=== PATIENT | male | born 1975 | race Caucasian/White ===

== ENCOUNTER 2024-04-13 11:27 | Observation (INO) ==
[2024-04-13 11:54] LABS: Basophils # (auto) 0.03 K/uL (0.00-0.20); Basophils % (auto) 0.2 %; Eosinophils # (auto) 0.02 K/uL (0.00-0.50); Eosinophils % (auto) 0.1 %; Hematocrit (blood only) 50.5 % (42.0-52.0); Immature Granulocytes # (auto) 0.06 K/uL (0.01-0.20); Immature Granulocytes % (auto) 0.4 %; Lymphocytes # (auto) 1.99 K/uL (1.20-3.40); Lymphocytes % (auto) 14.6 %; Mean Corpuscular Hemoglobin 30.4 pg (25.0-34.0); Mean Corpuscular Hgb Conc 35.6 g/dL (32.0-36.0); Mean Corpuscular Volume 85.3 fL (80.0-100.0); Mean Platelet Volume 11.5 fL (9.4-12.4); Monocytes # (auto) 1.23 K/uL (0.11-0.59); Monocytes % (auto) 9.1 %; Neutrophils # (auto) 10.26 K/uL (1.40-6.50); Neutrophils % (auto) 75.6 %; Platelet Count 265 K/uL (130-400); RDW Standard Deviation 37.2 fL (36.4-46.3); Red Blood Count 5.92 M/uL (4.70-6.10); White Blood Count 13.59 K/ul (4.8-10.8)
[2024-04-13 12:19] LABS: Partial Thromboplastin Time 27 Seconds (21-31); Prothrombin Time 11.2 Seconds (9.0-12.0)
[2024-04-13 12:24] LABS: Albumin Globulin Ratio 1.5 (0.9-2); Albumin Level 4.9 gm/dl (3.4-5.0); BUN Creatinine Ratio 9.3 (10-20); Bilirubin,Total 0.8 mg/dl (0.2-1.0); Calcium 10.2 mg/dl (8.6-10.3); Creatinine Clr Calc Pharmacy 95.1 ml/min; Est GFR (African American) 105.8 ml/min; Est GFR (Non-African American) 91.3 ml/min; Globulin 3.3 gm/dl (2.5-4.0); Total Protein 8.2 gm/dl (6.0-8.3)
--- NOTE | 2024-04-13 12:24 | Emergency Department Note ---
ED Provider Note History of Present Illness Chief Complaint: Abdominal Pain Stated Complaint: RIGHT ABD PAIN, NAUSEA, VOMITING Time Seen by Provider: 04/13/24 11:54 49-year-old male LEANNE Mckinley inmate who presents the emergency department with corrections officers for evaluation of epigastric pain radiating into the region between the shoulder blades. The patient reports that the pain started around 5:30 AM yesterday morning. The patient reports that throughout the day, the pain was intermittent, but rather severe discomfort with nausea, vomiting and sweatiness. The patient reports that the symptoms did somewhat improve last evening, however the patient has had vomiting every 20 minutes overnight. He reports that the vomit looks like bile. He denies coffee-ground emesis. Patient reports that the pain is also worsened when he takes a deep breath. He denies any chest pain, shortness of breath, neck pain or headaches. The patient denies any excess of caffeine or ibuprofen use. Patient reports that he has not had any alcohol since being incarcerated for the past 18 months. He denies history of heart disease, GERD or other known GI issues. Patient does not know his father, and reports family history is of heart disease and stroke. Patient has not had a bowel movement in the last few days. Patient denies any urinary symptoms. The patient currently rates his discomfort a 6 out of 10. Patient denies any obvious alleviating or aggravating factors for his pain. Home Medications Medication Instructions Recorded Confirmed Type No Known Home Medications 04/13/24 04/13/24 History Allergies Allergy/AdvReac Type Severity Reaction Status Date / Time No Known Allergies Allergy Unverified 04/13/24 14:44 Past Med/Surg History Problem List Acute cholecystitis (Acute) Medical History Cocaine use disorder Opioid use disorder Sleep disorder Surgical History No significant past surgical history Social History Smoking Status: Never smoker Preferred Language: Amharic Current Living Situation: Other Current Living Situation Comment: Incarcerated Feels Safe at Home: Yes Physical Exam Vital Signs Vital Signs - 24 hr 04/13/24 11:30 04/13/24 11:55 04/13/24 11:56 Temperature 36.7 C Temperature Source Temporal Artery Scan Pulse Rate 95 H Pulse Rate [Apical] Pulse Rate [Finger] 90 Pulse Rhythm [Apical] Respiratory Rate 18 20 Respiratory Effort / Characteristics Non-Labored Spontaneous Non-Labored Spontaneous Respiratory Depth Normal Normal Respiratory Pattern Blood Pressure 149/103 H Blood Pressure [Right Arm] 156/99 H Blood Pressure Mean 118 Blood Pressure Mean [Right Arm] 118 Blood Pressure Position Sitting Blood Pressure Position [Right Arm] Pulse Oximetry 96 98 99 Oxygen Delivery Method Room Air Room Air Room Air Oxygen Flow Rate Sepsis Recent Fever Within 48 Hours No Sepsis New/Unexplained Change in Mental Status No Sepsis Action Taken by Nursing No Action Required 04/13/24 12:24 04/13/24 14:30 04/13/24 14:49 Temperature Temperature Source Pulse Rate Pulse Rate [Apical] Pulse Rate [Finger] 92 H Pulse Rhythm [Apical] Respiratory Rate 17 Respiratory Effort / Characteristics Non-Labored Spontaneous Respiratory Depth Normal Respiratory Pattern Regular Blood Pressure Blood Pressure [Right Arm] 137/97 Blood Pressure Mean Blood Pressure Mean [Right Arm] 110 Blood Pressure Position Blood Pressure Position [Right Arm] Pulse Oximetry 94 Oxygen Delivery Method Room Air Room Air Room Air Oxygen Flow Rate Sepsis Recent Fever Within 48 Hours Sepsis New/Unexplained Change in Mental Status Sepsis Action Taken by Nursing 04/13/24 15:14 04/13/24 17:24 04/13/24 17:30 Temperature 37.2 C 36.5 C Temperature Source Oral Temporal Artery Scan Temporal Artery Scan Pulse Rate Pulse Rate [Apical] 98 H 92 H Pulse Rate [Finger] 95 H Pulse Rhythm [Apical] Regular Regular Respiratory Rate 20 20 10 L Respiratory Effort / Characteristics Non-Labored Spontaneous Non-Labored Spontaneous Non-Labored Spontaneous Respiratory Depth Normal Normal Normal Respiratory Pattern Regular Regular Regular Blood Pressure Blood Pressure [Right Arm] 144/93 H 154/92 H 148/92 H Blood Pressure Mean Blood Pressure Mean [Right Arm] 110 112 110 Blood Pressure Position Blood Pressure Position [Right Arm] Semi-fowlers Semi-fowlers Semi-fowlers Pulse Oximetry 96 94 93 Oxygen Delivery Method Room Air Nasal Cannula Nasal Cannula Oxygen Flow Rate 3 3 Sepsis Recent Fever Within 48 Hours Sepsis New/Unexplained Change in Mental Status Sepsis Action Taken by Nursing 04/13/24 17:40 04/13/24 17:50 Temperature Temperature Source Temporal Artery Scan Temporal Artery Scan Pulse Rate Pulse Rate [Apical] 88 86 Pulse Rate [Finger] Pulse Rhythm [Apical] Regular Regular Respiratory Rate 14 12 Respiratory Effort / Characteristics Non-Labored Spontaneous Non-Labored Spontaneous Respiratory Depth Normal Normal Respiratory Pattern Regular Regular Blood Pressure Blood Pressure [Right Arm] 132/91 148/90 H Blood Pressure Mean Blood Pressure Mean [Right Arm] 104 109 Blood Pressure Position Blood Pressure Position [Right Arm] Semi-fowlers Semi-fowlers Pulse Oximetry 96 96 Oxygen Delivery Method Nasal Cannula Nasal Cannula Oxygen Flow Rate 2 2 Sepsis Recent Fever Within 48 Hours Sepsis New/Unexplained Change in Mental Status Sepsis Action Taken by Nursing CONSTITUTIONAL: Healthy and well nourished. Alert and oriented X 3. GCS 15. Patient appears in moderate discomfort. HEENT: Normocephalic, atraumatic. Pupils equal, round and reactive. Mucous membranes are dry. No scleral icterus or conjunctival injection. NECK: Full active range of motion without discomfort. LYMPHATICS: No cervical chain adenopathy. RESPIRATORY: Clear to auscultation bilaterally with no wheezing, crackles, rhonchi or stridor. CARDIOVASCULAR: Regular rate and rhythm with no murmurs, rubs or gallops. GASTROINTESTINAL: Bowel sounds present in all quadrants. Patient has right upper quadrant and epigastric tenderness to palpation without guarding, rigidity or rebound. Negative CVA tenderness. Negative McBurney's point tenderness. MUSCULOSKELETAL: Full range of motion of all joints without discomfort. INTEGUMENTARY: No rash or other significant dermatologic conditions noted. HEMATOLOGIC: No ecchymosis or petechiae. PSYCHIATRIC: Positive affect. NEUROLOGIC: No focal neurologic deficits noted. Course Course Patient history and physical exam were performed. Nurses notes were reviewed. Vital signs were reviewed, showing an elevated blood pressure in triage. On my examination, the blood pressure was much better at 145/92. Review of medical records shows no prior visits to our facility. IV access was established, and labs were drawn. The patient was hydrated with a liter of normal saline, and administered IV morphine and Zofran for pain and nausea control. An ECG was performed showing a sinus bradycardia, without any other conduction abnormalities, ischemia or infarct. The patient was placed on media monitor while in the emergency department. A portable chest x-ray was normal. Further review of labs shows a mild leukocytosis with mild neutrophilic shift, and no bandemia. Coagulation studies, CMP and lipase were grossly normal. Troponin was also normal. CT with IV contrast of the chest, abdomen and pelvis is concerning for an acute cholecystitis with multiple gallstones and pericholecystic fluid. Upon reevaluation, the patient reported initial pain relief with IV medications, however the pain was starting to get back again. The patient was administered IV Dilaudid and Zosyn 4.5 mg IV infusion. The case was discussed with the [facility] surgery service (Carolyne Flowers PA-C), who came to the emergency department for further evaluation, and has indicated that the patient will undergo laparoscopic cholecystectomy sometime today. The patient was provided additional IV medications and hydration until he went to the OR. Please see surgery's dictations for further treatment and final disposition. Administered Medications Discontinued Medications Bupivacaine HCl/Epinephrine Bitart (Bupivacaine/Epinephrine 0.5% Mpf 1:200,000 30 Ml Vial) Confirm Administered Dose 30 ml .ROUTE .STK-MED ONE Stop: 04/13/24 15:29 Last Admin: 04/13/24 16:56 Dose: 30 ml Documented By: [id number] Piperacillin Sod/Tazobactam Sod (Zosyn) 4.5 gm in 100 mls @ 200 mls/hr IV NOW ONE Stop: 04/13/24 14:15 Last Admin: 04/13/24 14:44 Dose: 200 mls/hr Documented By: KITA Lactated Ringer's (Lr) 1,000 mls @ 15 mls/hr IV .Q24H JUAN DANIEL Stop: 05/13/24 15:29 Last Infusion: 04/13/24 15:30 Dose: Infused Documented By: Admin: 04/13/24 15:21 Dose: 15 mls/hr Documented By: MG Ioversol (Optiray 320 100ml) 94 ml IV ONCE ONE Stop: 04/13/24 12:58 Last Admin: 04/13/24 12:57 Dose: 94 ml Documented By: JENNYFER Morphine Sulfate (Morphine Sulfate 4 Mg/Ml 1 Ml Carp\Vial) 4 mg IV NOW STA Stop: 04/13/24 12:13 Last Admin: 04/13/24 12:39 Dose: 4 mg Documented By: ROOPA Ondansetron HCl (Ondansetron Inj 2 Mg/Ml 2 Ml Vial) 4 mg IV NOW STA Stop: 04/13/24 12:13 Last Admin: 04/13/24 12:39 Dose: 4 mg Documented By: ROOPA Medical Decision Making Medical Records Attestation: I reviewed the patient's medical records. Home Medications was personally reviewed by me Laboratory Data Attestation: I reviewed the patient's lab results. 04/13/24 11:35 04/13/24 11:35 Lab Results 04/13/24 04/13/24 Range/Units 11:35 11:35 WBC 13.59 H (4.8-10.8) K/ul RBC 5.92 (4.70-6.10) M/uL Hgb 18.0 (14.0-18.0) g/dl Hct 50.5 (42.0-52.0) % MCV 85.3 (80.0-100.0) fL MCH 30.4 (25.0-34.0) pg MCHC 35.6 (32.0-36.0) g/dL RDW Std Deviation 37.2 (36.4-46.3) fL RDW Coeff of Marcus 12.0 (11.5-14.5) % Plt Count 265 (130-400) K/uL MPV 11.5 (9.4-12.4) fL Immature Gran % (Auto) 0.4 % Neut % (Auto) 75.6 % Lymph % (Auto) 14.6 % Hendry % (Auto) 9.1 % Eos % (Auto) 0.1 % Baso % (Auto) 0.2 % Neut # (Auto) 10.26 H (1.40-6.50) K/uL Lymph # (Auto) 1.99 (1.20-3.40) K/uL Hendry # (Auto) 1.23 H (0.11-0.59) K/uL Eos # (Auto) 0.02 (0.00-0.50) K/uL Baso # (Auto) 0.03 (0.00-0.20) K/uL Immature Gran # (Auto) 0.06 (0.01-0.20) K/uL PT 11.2 (9.0-12.0) Seconds INR 1.0 (0.9-1.1) APTT 27 (21-31) Seconds PTT Ratio 1.0 Sodium 139 (136-145) mmol/L Potassium 4.0 (3.5-5.1) mmol/L Chloride 98 (98-107) mmol/L Carbon Dioxide 34 H (21-32) mmol/L Anion Gap 7 (3-11) BUN 9 (6-23) mg/dl Creatinine 0.97 (0.6-1.4) mg/dl Est Cr Clr Drug Dosing 95.1 ml/min Est GFR ( Amer) 105.8 ml/min Est GFR (Non-Af Amer) 91.3 ml/min BUN/Creatinine Ratio 9.3 L (10-20) Glucose 109 H (70-99(Fasting)) mg/dl Calcium 10.2 (8.6-10.3) mg/dl Total Bilirubin 0.8 (0.2-1.0) mg/dl AST 20 (13-39) U/L ALT 22 (7-52) U/L Alkaline Phosphatase 88 (34-104) U/L Troponin I High Sens 7.7 (0-20) pg/ml Total Protein 8.2 (6.0-8.3) gm/dl Albumin 4.9 (3.4-5.0) gm/dl Globulin 3.3 (2.5-4.0) gm/dl Albumin/Globulin Ratio 1.5 (0.9-2) Lipase 24 Cancelled (11-82) U/L Imaging Data Attestation: I personally reviewed and interpreted this imaging study as follows: My Impression: My interpretation of a portable chest x-ray does not show evidence for pneumothorax, pneumonia, obvious rib fractures or cardiac prominence. My interpretation of the CT with IV contrast of the chest, abdomen and pelvis shows multiple gallstones and gallbladder wall thickening with pericholecystic fluid, concerning for acute cholecystitis. No other acute intrathoracic findings are appreciated on my evaluation. Radiologist reports were also reviewed. Radiologist's Impression: Chest X-Ray 04/13/24 11:33 XR chest 1V portable CLINICAL HISTORY: Chest pain, nonspecific TECHNIQUE: Single frontal radiograph of the chest was obtained. Comparison: None available at the time of this dictation. FINDINGS: No lines and tubes are seen. The cardiomediastinal silhouette is normal. The lungs are clear. No evidence of pleural effusion or pneumothorax. IMPRESSION: No acute chest disease. ACT 112: Negative or not required by law. Electronically signed by: Ed Reyes M.D. 04/13/2024 12:41 PM Abdomen/Pelvis CT 04/13/24 12:13 CT abd pelvis IV con only CLINICAL HISTORY: Epigastric pain radiating to interscap region TECHNIQUE: Helical axial images of the abdomen and pelvis were obtained and displayed. Automated dose lowering techniques and/or adjustment according to patient size were utilized for this exam. This exam was performed with intravenous contrast. COMPARISON: None available at the time of this dictation. FINDINGS: Lower chest: No acute abnormality. Liver: Unremarkable. No focal lesions are seen. Gallbladder and biliary tree: The gallbladder wall is thickened measuring 3 mm with pericholecystic fluid. A few dependent stones are seen and there are calcific densities in the fundus as well. No intra- or extrahepatic biliary ductal dilation. Pancreas: Unremarkable, no focal lesions. Spleen: Splenule is incidentally noted. Adrenals: Unremarkable. Kidneys and ureters: Unremarkable. Bladder: Unremarkable. Reproductive organs: Unremarkable. Bowel: Diverticulosis is seen without diverticulitis. The appendix is normal. A hiatal hernia is seen. Lymph nodes Retroperitoneal: Unremarkable. Pelvic: Unremarkable. Mesenteric: Unremarkable. Peritoneum: Normal. Vessels: Atherosclerotic calcifications are seen. Abdominal wall: A fat-containing umbilical hernia is seen. Bones: Degenerative changes in the visualized spine. IMPRESSION: Findings are compatible with acute cholecystitis. No evidence of gallbladder rupture. ACT 112: Negative or not required by law. Electronically signed by: Ed Reyes M.D. 04/13/2024 1:[address] 04/13/24 12:[address] WITH CONTRAST CT DOSE: 1801.68 mGy.cm HISTORY: Acute epigastric abdominal pain Epigastric pain radiating to interscap region TECHNIQUE: Multiaxial CT images of the chest were performed following the IV administration of 94 cc of Optiray. A dose lowering technique was utilized adhering to the principles of ALARA. COMPARISON: CT abdomen and pelvis of same day FINDINGS: The lungs are clear. The mediastinal vascular structures are within normal limits. No mediastinal or hilar lymphadenopathy. No pleural effusion or pneumothorax. Partially imaged inflammatory stranding within the criss hepatis. Mild intrahepatic biliary ductal prominence. Numerous stones are present within the cystic duct measuring up to 8 mm. Tiny hiatal hernia with mild mid to distal esophageal wall thickening. No acute fracture. IMPRESSION: 1. No acute intrathoracic abnormality. 2. Numerous stones within the cystic duct are noted along with intrahepatic biliary ductal prominence and criss hepatis inflammatory stranding related to the acute cholecystitis seen on the same day CT abdomen and pelvis. Surgical consultation advised. 3. Small hiatal hernia with distal esophageal wall thickening. ACT 112: Negative or not required by law. Electronically signed by: Rosalino Ornelas M.D. 04/13/2024 1:46 PM ECG Data Attestation: I personally reviewed and interpreted this ECG as follows: Indication: + abdominal pain and + back/shoulder pain Rate (beats per minute): 54 Rhythm: + sinus bradycardia ECG Intervals/blocks: + Normal QRS, + Normal QT and + Normal UT ECG [place]: + Normal ECG ST segments: + Normal ST segments Comparison ECG Date: no prior available MDM Narrative Cardiac monitoring: An order was placed for continuous cardiac monitoring. The monitor shows a rate of 54 bpm with a sinus bradycardic rhythm. media monitor history was reviewed throughout the evaluation, and no dysrhythmias were noted. See ED Course section for further details of today's visit. The patient presents for evaluation of of epigastric pain rating into the intrascapular region for the past 24 hours, worsening overnight. Patient denies any personal history of cardiopulmonary disease. Patient does report a family history of unknown heart disease. The patient's initial ECG shows a sinus bradycardia without ischemic changes or infarct. Troponin was also normal. An initial portable chest x-ray did not show evidence for cardiomegaly, pneumothorax or pneumonia. Given the patient's presenting symptoms, I also ordered CT with IV contrast of the chest, abdomen and pelvis, showing a probable acute cholecystitis with gallstones, gallbladder wall thickening and pericholecystic fluid. Further review of labs shows a mild leukocytosis without evidence for transaminitis, elevated bilirubin, alkaline phosphatase or lipase. The case was discussed with the [facility] surgical service, who will be taking the patient to the OR for laparoscopic cholecystectomy. I did order IV antibiotics and additional as needed analgesics until the patient went to the OR. Impression Acute cholecystitis Discharge Plan Visit Data Chief Complaint: Abdominal Pain Stated Complaint: RIGHT ABD PAIN, NAUSEA, VOMITING ED Provider: Angelina Bolden ED Midlevel Provider: Alec Mathews Discharge Problem: Acute cholecystitis Patient Disposition: Admitted As Inpatient Discharge Instructions Interventions: ED Discharge Assessment Last Done: 04/13/24 14:49
[2024-04-13 12:31] LABS: Troponin I High Sensitivity 7.7 pg/ml (0-20)
[2024-04-13] MEDS: MoRPHine SULFATE 4 MG/ML 1 ML CARP\\VIAL IV STA (12:39)
[2024-04-13] MEDS: ONDANSETRON INJ 2 MG/ML 2 ML VIAL IV STA (12:39)
--- NOTE | 2024-04-13 12:42 | XRay Report ---
XR chest 1V portable CLINICAL HISTORY: Chest pain, nonspecific TECHNIQUE: Single frontal radiograph of the chest was obtained. Comparison: None available at the time of this dictation. FINDINGS: No lines and tubes are seen. The cardiomediastinal silhouette is normal. The lungs are clear. No evid ence of pleural effusion or pneumothorax. IMPRESSION: No acute chest disease. ACT 112: Negative or not required by law. Electronically signed by: Ed Reyes M.D. 04/13/2024 12:41 PM
[2024-04-13] MEDS: OPTIRAY 320 100ml IV ONE (12:57)
--- NOTE | 2024-04-13 13:27 | CT Scan Report ---
CT abd pelvis IV con only CLINICAL HISTORY: Epigastric pain radiating to interscap region TECHNIQUE: Helical axial images of the abdomen and pelvis were obtained and displayed. Automated dose lowering techniques and/or adjustment according to patient size were utilized for this exam. This e xam was performed with intravenous contrast. COMPARISON: None available at the time of this dictation. FINDINGS: Lower chest: No acute abnormality. Liver: Unremarkable. No focal lesions are seen. Gallbladder and biliary tree: The gallbladder wall is thickened measuring 3 mm with pericholecystic f luid. A few dependent stones are seen and there are calcific densities in the fundus as well. No intr a- or extrahepatic biliary ductal dilation. Pancreas: Unremarkable, no focal lesions. Spleen: Splenule is incidentally noted. Adrenals: Unremarkable. Kidneys and ureters: Unremarkable. Bladder: Unremarkable. Reproductive organs: Unremarkable. Bowel: Diverticulosis is seen without diverticulitis. The appendix is normal. A hiatal hernia is seen . Lymph nodes Retroperitoneal: Unremarkable. Pelvic: Unremarkable. Mesenteric: Unremarkable. Peritoneum: Normal. Vessels: Atherosclerotic calcifications are seen. Abdominal wall: A fat-containing umbilical hernia is seen. Bones: Degenerative changes in the visualized spine. IMPRESSION: Findings are compatible with acute cholecystitis. No evidence of gallbladder rupture. ACT 112: Negative or not required by law. Electronically signed by: Ed Reyes M.D. 04/13/2024 1:25 PM
[2024-04-13] MEDS ORDERED: HYDROmorphone INJ 0.5 MG/0.5 ML SYR IV PRN (13:46)
--- NOTE | 2024-04-13 13:49 | CT Scan Report ---
CHEST CT WITH CONTRAST CT DOSE: 1801.68 mGy.cm HISTORY: Acute epigastric abdominal pain Epigastric pain radiating to interscap region TECHNIQUE: Multiaxial CT images of the chest were performed following the IV administration of 94 cc of Optiray. A dose lowering technique was utilized adhering to the principles of ALARA. COMPARISON: CT abdomen and pelvis of same day FINDINGS: The lungs are clear. The mediastinal vascular structures are within normal limits. No media stinal or hilar lymphadenopathy. No pleural effusion or pneumothorax. Partially imaged inflammatory s tranding within the criss hepatis. Mild intrahepatic biliary ductal prominence. Numerous stones are p resent within the cystic duct measuring up to 8 mm. Tiny hiatal hernia with mild mid to distal esopha geal wall thickening. No acute fracture. IMPRESSION: 1. No acute intrathoracic abnormality. 2. Numerous stones within the cystic duct are noted along with intrahepatic biliary ductal prominence and criss hepatis inflammatory stranding related to the acute cholecystitis seen on the same day CT abdomen and pelvis. Surgical consultation advised. 3. Small hiatal hernia with distal esophageal wall thickening. ACT 112: Negative or not required by law. Electronically signed by: Rosalino Ornelas M.D. 04/13/2024 1:46 PM
--- NOTE | 2024-04-13 13:55 | History & Physical Report ---
Date of Service April 13, 2024 Assessment & Plan (1) Acute cholecystitis: Plan: This 49yM prisoner with no significant PMH who presented to the [facility] ED on 04/13/24 with complaints of abdominal pain, nausea/vomiting. Symptoms worsened since starting yesterday at 5:30 in the AM. Due to his pain and symptoms he presented to our ER for further evaluation. A CT a/p was obtained that revealed findings concerning for acute cholecystitis. No evidence of gallbladder rupture. Labs reveal an elevated WBC 13, Hbg 18, and LFTs are within normal limits. Vital signs are stable. On exam patient appears in mild discomfort. Abdomen is soft, mildly distended, with discomfort in the epigastric and RUQ areas. Labs/imaging/history/exam all consistent with acute cholecystitis as etiology of patient's abdominal pain. Will keep NPO with IVF and order pre-op abx and book the patient for the OR for laparoscopic possible open cholecystectomy. Dr. Grimaldo will be by to obtain consent. History of Present Illness Primary Care Provider: LEANNE Mckinley This 49yM prisoner with no significant PMH who presented to the [facility] ED on 04/13/24 with complaints of abdominal pain, nausea/vomiting. He states his pain started yesterday AM around 5:30. He was able to eat some hard boiled eggs and milk. Unfortunately throughout the day and into the night his pain worsened in severity and he developed nausea/vomiting. He vomited multiple times into this AM. Due to his symptoms he presented to our ER for further evaluation. A CT a/p was obtained that revealed findings concerning for acute cholecystitis. No evidence of gallbladder rupture. Patient never had symptoms like this before. No issues with eating fatty/greasy/fatty foods. He notes subjective fevers/chills and some SOB/CP 2/2 abdominal pain. No diarrhea/constipation. No food since yesterday. No prior abdominal surgical history. Allergies Allergy/AdvReac Type Severity Reaction Status Date / Time No Known Allergies Allergy Unverified 04/13/24 14:44 Home Medications Medication Instructions Recorded Confirmed Type No Known Home Medications 04/13/24 04/13/24 History Past Med/Surg History Problem List Acute cholecystitis (Acute) Medical History Cocaine use disorder Opioid use disorder Sleep disorder Surgical History No significant past surgical history Social History Smoking Status: Never smoker Preferred Language: Luxembourgish Current Living Situation: Other Current Living Situation Comment: Incarcerated Feels Safe at Home: Yes Review of Systems Constitutional: + fever and + chills Respiratory: some SOB 2/2 pain Cardiovascular: + chest pain (some chest pain 2/2 to abd ominal pain ) Gastrointestinal: + abdominal pain, + nausea and + vomitin g; no bloating and no change in bowel habits Physical Exam Physical Exam: awake/alert, appears in mild distress 2/2 pain and nausea Constitutional: well developed, well nourished and + ill appearing Respiratory: normal respiratory effort Gastrointestinal (Abdomen): Inspection/Auscultation: + abdomen distended (mild) Percussion/Palpation: + abdomen tender (ttp in epigastric and RUQ) and abdomen soft Results & Data Results & Data Vital Signs (Past 12 Hours) Vital Signs Temp Pulse Pulse Resp BP BP Pulse Ox 04/13/24 12:24 04/13/24 11:56 99 04/13/24 11:55 90 20 156/99 H 98 04/13/24 11:30 98.1 F 95 H 18 149/103 H 96 O2 Del Method 04/13/24 12:24 Room Air 04/13/24 11:56 Room Air 04/13/24 11:55 Room Air 04/13/24 11:30 Room Air Diagnostic Findings CT abd pelvis IV con only CLINICAL HISTORY: Epigastric pain radiating to interscap region TECHNIQUE: Helical axial images of the abdomen and pelvis were obtained and displayed. Automated dose lowering techniques and/or adjustment according to patient size were utilized for this exam. This exam was performed with intravenous contrast. COMPARISON: None available at the time of this dictation. FINDINGS: Lower chest: No acute abnormality. Liver: Unremarkable. No focal lesions are seen. Gallbladder and biliary tree: The gallbladder wall is thickened measuring 3 mm with pericholecystic fluid. A few dependent stones are seen and there are calcific densities in the fundus as well. No intra- or extrahepatic biliary ductal dilation. Pancreas: Unremarkable, no focal lesions. Spleen: Splenule is incidentally noted. Adrenals: Unremarkable. Kidneys and ureters: Unremarkable. Bladder: Unremarkable. Reproductive organs: Unremarkable. Bowel: Diverticulosis is seen without diverticulitis. The appendix is normal. A hiatal hernia is seen. Lymph nodes Retroperitoneal: Unremarkable. Pelvic: Unremarkable. Mesenteric: Unremarkable. Peritoneum: Normal. Vessels: Atherosclerotic calcifications are seen. Abdominal wall: A fat-containing umbilical hernia is seen. Bones: Degenerative changes in the visualized spine. IMPRESSION: Findings are compatible with acute cholecystitis. No evidence of gallbladder rupture. ACT 112: Negative or not required by law. Supervising Physician Co-Signing Physician Notes I have seen, examined this patient and reviewed his studies. We will proceed with laparoscopic cholecystectomy. PG Care Time/CCT Total # of Minutes Spent Total Time Spent with Patient: Total time spent is greater than 50% in coordination of care (as documented) at patient's floor/unit and/or counseling patient: Coding Level of Care Code 67753 INT INP/OBS CARE 2/55MIN Diagnoses Acute cholecystitis K81.0
[2024-04-13] MEDS: PIPERACILLIN/TAZOBACTAM 4.5 GM/100 ML BAG IV ONE (14:44)
[2024-04-13] MEDS ORDERED: fentaNYL citrate PF 100 MCG/2 ML VIAL ONE (15:10)
[2024-04-13] MEDS ORDERED: MIDAZOLAM HCL 1 MG/ML 2ML VIAL ONE (15:10)
[2024-04-13] MEDS ORDERED: ONDANSETRON INJ 2 MG/ML 2 ML VIAL ONE (15:10)
[2024-04-13] MEDS ORDERED: SUGAMMADEX SODIUM 200 MG/2 ML VIAL IV ONE (15:10)
[2024-04-13] MEDS ORDERED: LIDOCAINE 2% 2 ML VIAL/AMP(20MG/ML) INFIL ONE (15:10)
[2024-04-13] MEDS ORDERED: PROPOFOL IV EMULSION 10 MG/ML 20 ML VIAL IV ONE (15:10)
[2024-04-13] MEDS ORDERED: KETAMINE HCL 10MG/ML SYR ONE (15:10)
[2024-04-13] MEDS ORDERED: ROCURONIUM BROMIDE 10 MG/ML 5 ML VIAL IV ONE (15:10)
[2024-04-13] MEDS ORDERED: fentaNYL citrate PF 100 MCG/2 ML VIAL IV PRN (15:11)
[2024-04-13] MEDS ORDERED: ONDANSETRON INJ 2 MG/ML 2 ML VIAL IV PRN ×2 (15:11→18:20)
[2024-04-13] MEDS ORDERED: ATROPINE SULFATE 0.1 MG/ML 10ML SYR IV PRN (15:11)
[2024-04-13] MEDS ORDERED: ePHEDrine sulfate 50 MG/ML AMP IV PRN (15:11)
--- NOTE | 2024-04-13 15:11 | Anesthesiology Consultation ---
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 History Surgery Operation Date: 04/13/24 10:45 Proposed Procedures p Laparoscopic Cholecystectomy - Rita Grimaldo DO Height/Weight Height: 5 ft 10 in Weight: 83.9 kg Allergies Allergy/AdvReac Type Severity Reaction Status Date / Time No Known Allergies Allergy Unverified 04/13/24 14:44 Medications Home Medications Medication Instructions Recorded Confirmed Last Taken No Known Home Medications 04/13/24 04/13/24 Unknown Past Medical History Medical History Cocaine use disorder Opioid use disorder Sleep disorder Past Surgical History Surgical History No significant past surgical history Social History Smoking Status: Never smoker Physical Exam Vital Signs Last Vital Signs Temp 98.1 F 04/13/24 11:30 Pulse 92 H 04/13/24 14:30 Resp 17 04/13/24 14:30 BP 137/97 04/13/24 14:30 Pulse Ox 94 04/13/24 14:30 O2 Del Method Room Air 04/13/24 14:49 Testing Laboratory Results 04/13/24 11:35 04/13/24 11:35 PT 11.2 Seconds (9.0-12.0) 04/13/24 11:35 INR 1.0 (0.9-1.1) 04/13/24 11:35 APTT 27 Seconds (21-31) 04/13/24 11:35 Electrocardiogram Date: 04/13/24 Findings: + SB @ (54 bpm)
[2024-04-13] MEDS: LACTATED RINGER'S 1,000 ML IV SCH ×2 (15:21→18:32)
[2024-04-13] MEDS ORDERED: HYDROmorphone INJ 2 MG/ML SYR/VIAL ONE (16:10)
[2024-04-13] MEDS: BUPIVACAINE/EPINEPHRINE 0.5% MPF 1:200,000 30 ML VIAL ONE (16:56)
--- NOTE | 2024-04-13 17:29 | Operative Report ---
PG Post Operative Report Pre & Post Diagnosis Operation Date: 04/13/24 10:45 Pre-Op Diagnosis: (1) Acute cholecystitis: Post-Op Diagnosis: (1) Acute cholecystitis: I identified the patient and participated in the time-out.: Yes Procedure Operation Date: 04/13/24 10:45 Actual Procedures p Laparoscopic Cholecystectomy(Not Applicable) - Rita Grimaldo DO Surgeon Rita Grimaldo DO Manufacturing Scheduler ROWENA Conti Estimated Blood Loss 7 Findings See Below Edematous and thickened gallbladder Specimens Gallbladder Anesthesia Type General Complications None Indications Acute on chronic cholecystitis Description of Procedure The patient was brought back to the operating room placed on the operating room table in supine position. He was connected to cardiac and oxygen monitoring. Supplemental O2 was provided and SCDs were applied to bilateral lower extremities. General anesthesia was administered and a secure airway was established. The abdomen was prepped and draped in typical sterile fashion and a timeout was conducted. Local anesthetic was injected into the skin and subcutaneous tissue at the supraumbilical fold and a small stab incision was made. A Veress needle was used to access the intra-abdominal space and pneumoperitoneum was established local pressure 15 mmHg. Using direct visualization once this pressure was reached, a 5 mm trocar was inserted with direct visualization using a Visiport and 5 mm laparoscope. Under direct visualization, and the 11 mm trocar was inserted at the epigastric region and 2 additional 5 mm trocar was inserted at the right subcostal margin. There were no injuries to intra-abdominal contents during the incision of the Veress needle or trocars. The OR table was positioned in reverse Trendelenburg and left side down. The gallbladder was noted distended and thickened at the right upper quadrant. This was grasped at the fundus with a grasper and retracted superiorly. Very edematous and fibrinous thick serosa surrounded the infundibulum. This was teased away gently using suction irrigation for blunt dissection. There is some bleeding during this process. The infundibulum was then grasped and the cystic triangle was exposed. The cystic artery became in [employer] along with the cystic duct which was dilated. Two 5 mm clips were applied proximally on the cystic artery and 1 distally. The cystic artery was transected using laparoscopic dharmesh. Further blunt and alternating cautery dissection were used to thin down adhesions around the cystic duct and two 5 mm clips were applied proximally. The clip supervisor data processing was seen completely around the duct but this was so thickened that when the clip supervisor data processing was applied the clips did not closed completely around the cystic duct. A 5 mm clip was then applied on the proximal aspect of the gallbladder and the cystic duct was partially transected with the laparoscopic scissors. An additional clip was applied proximally and in an effort to ligate the posterior portion of the cystic duct. The gallbladder was then carefully dissected away from the liver bed using alternating cautery and blunt dissection. Again there was thickened and edematous serosal tissue still encasing this area that bled through dissection. Bleeding was controlled with cautery. Once the gallbladder was completely removed. The cystic duct was reinspected. I was concerned about a potential leak from this area based on the dilation of the duct and the inability of the 5 mm clips to truly get completely around the duct so a 10 mm clip supervisor data processing was used to apply to 2 mm clips proximally below the 5 mm clips that have previously been applied. The gallbladder was placed in an Endo Catch bag and removed. The right upper quadrant was copiously irrigated and inspected several times for hemostasis. A few additional loosened clips were removed. The OR table was returned to the neutral position and the right upper quadrant was again inspected excess fluid was suctioned away. Again the liver bed was checked for hemostasis and there was no bleeding. All instruments were removed, CO2 insufflation was discontinued and pneumoperitoneum was evacuated. The trocars were removed. The fascia at the epigastric incision was closed using 0 Vicryl suture. Additional local anesthetic was injected into the subcutaneous tissues at all incision sites. Subcuticular sutures were applied at all incisions using 4-0 Vicryl suture and the incisions were sealed with Dermabond. The patient tolerated the procedure well. He was awakened from anesthesia and transferred to recovery in stable condition. I attest to the content of the Intraoperative Record and any orders documented therein. Any exceptions are noted below.
--- NOTE | 2024-04-13 18:02 | Anesthesiology Progress Note ---
Date of Service April 13, 2024 Anesthesia Post Procedure Vital Signs Vital Signs: Temp Pulse Pulse Pulse Resp BP BP 04/13/24 17:50 86 12 148/90 H 04/13/24 17:40 88 14 132/91 04/13/24 17:30 92 H 10 L 148/92 H 04/13/24 17:24 97.7 F 98 H 20 154/92 H 04/13/24 15:14 99.0 F 95 H 20 144/93 H 04/13/24 14:49 04/13/24 14:30 92 H 17 137/97 04/13/24 12:24 04/13/24 11:56 04/13/24 11:55 90 20 156/99 H 04/13/24 11:30 98.1 F 95 H 18 149/103 H Pulse Ox O2 Del Method O2 Flow Rate 04/13/24 17:50 96 Nasal Cannula 2 04/13/24 17:40 96 Nasal Cannula 2 04/13/24 17:30 93 Nasal Cannula 3 04/13/24 17:24 94 Nasal Cannula 3 04/13/24 15:14 96 Room Air 04/13/24 14:49 Room Air 04/13/24 14:30 94 Room Air 04/13/24 12:24 Room Air 04/13/24 11:56 99 Room Air 04/13/24 11:55 98 Room Air 04/13/24 11:30 96 Room Air Pain Intensity Abdomen: Pain Intensity: 0 Transfer of Care Handoff Completed per policy Notes Mental Status: alert / awake / arousable and participated in evaluation Patient Amnestic to Procedure: Yes Nausea / Vomiting: adequately controlled Pain: adequately controlled Airway Patency, RR, SpO2: stable & adequate BP & HR: stable & adequate Hydration State: stable & adequate Anesthetic Complications: no major complications apparent and Pt Satisfied with anesthetic care
[2024-04-13] MEDS ORDERED: MoRPHine SULFATE 4 MG/ML 1 ML CARP\\VIAL IV PRN (18:20)
[2024-04-13] MEDS ORDERED: MoRPHine SULFATE 2 MG/ML CARP IV PRN (18:20)
[2024-04-13] MEDS ORDERED: oxyCODONE HCL IR 5 MG TAB (IMMEDIATE RELEASE) PO PRN ×2 (18:20)
[2024-04-13] MEDS: PIPERACILLIN/TAZOBACTAM 4.5 GM in DEXTROSE 5% MINI-B 100 ML IV SCH (19:52)
[2024-04-13 21:03] LABS: Appearance Urine Clear (Clear); Bilirubin Urine Negative (Negative); Blood Urine Negative (Negative); Color Urine Yellow; Glucose Urine UA Negative (Negative); Ketones Urine Trace (Negative); Leukocyte Esterase Urine Negative (Negative); Nitrite Urine Negative (Negative); Protein Urine Negative (Negative); Specific Gravity Urine 1.028 (1.000-1.030); Urobilinogen Urine Negative (Negative); pH Urine 7.5 (4.5-7.5)
[2024-04-13] MEDS: ACETAMINOPHEN 325 MG TAB PO PRN (23:56)
[2024-04-14 06:40] LABS: Basophils # (auto) 0.03 K/uL (0.00-0.20); Basophils % (auto) 0.2 %; Eosinophils # (auto) 0.01 K/uL (0.00-0.50); Eosinophils % (auto) 0.1 %; Hematocrit (blood only) 43.4 % (42.0-52.0); Hemoglobin 15.6 g/dl (14.0-18.0); Immature Granulocytes # (auto) 0.05 K/uL (0.01-0.20); Immature Granulocytes % (auto) 0.4 %; Lymphocytes # (auto) 1.83 K/uL (1.20-3.40); Lymphocytes % (auto) 15.1 %; Mean Corpuscular Hemoglobin 31.1 pg (25.0-34.0); Mean Corpuscular Hgb Conc 35.9 g/dL (32.0-36.0); Mean Corpuscular Volume 86.6 fL (80.0-100.0); Mean Platelet Volume 11.4 fL (9.4-12.4); Monocytes # (auto) 1.19 K/uL (0.11-0.59); Monocytes % (auto) 9.8 %; Neutrophils % (auto) 74.4 %; Platelet Count 215 K/uL (130-400); RDW Coefficient of Variation 12.3 % (11.5-14.5); RDW Standard Deviation 38.9 fL (36.4-46.3); Red Blood Count 5.01 M/uL (4.70-6.10); White Blood Count 12.11 K/ul (4.8-10.8)
[2024-04-14 06:53] LABS: Albumin Globulin Ratio 1.4 (0.9-2); Bilirubin,Total 0.8 mg/dl (0.2-1.0); Creatinine Clr Calc Pharmacy 92.3 ml/min; Globulin 2.8 gm/dl (2.5-4.0); Total Protein 6.8 gm/dl (6.0-8.3)
--- NOTE | 2024-04-14 10:13 | Electrocardiogram Report ---
Test Reason : Blood Pressure : / mmHG Vent. Rate : 054 BPM Atrial Rate : 054 BPM P-R Int : 134 ms QRS Dur : 086 ms QT Int : 386 ms P-R-T Axes : 060 032 065 degrees QTc Int : 366 ms Sinus bradycardia Otherwise normal ECG No previous ECGs available Confirmed by Bob Urias ([id number]) on 04/14/2024 10:13:33 AM Referred By: Arlen SCI Confirmed By:Fuad Urias
--- NOTE | 2024-04-14 10:34 | Surgery Progress Note ---
Date of Service April 14, 2024 Assessment & Plan (1) Acute cholecystitis: Plan: POD#1 laparoscopic cholecystectomy WBC 12 (13), Hbg 15. LFTs okay. Vitals stable Will advance to regular diet for lunch pain controlled. incisions c/d/i will plan on discharge back to correctional facility later today dispo instructions reviewed, f/u in the office with dr. horta in 2 weeks Admission and Anticipated Discharge Date Admission Date: April 13, 2024 Supervising Physician Co-Signing Physician Notes I have seen and examined this patient this am. I agree with this plan. Subjective Patient reports feeling much better than yesterday. Does have some expected post surgical pain, but doing well. Tolerating diet thus far no nausea/vomiting. Physical Exam Physical Exam: awake/alert, no distress Respiratory: normal respiratory effort Gastrointestinal (Abdomen): Inspection/Auscultation: + abdominal surgical incision (c/d/i with skin glue, no signs of infection); abdomen not distended Percussion/Palpation: + abdomen tender (expected tonya incisional discomfort to palpation) and abdomen soft Results & Data Vital Signs (Past 12 Hours) Vital Signs Temp Pulse Resp BP Pulse Ox O2 Del Method 04/14/24 06:18 98.2 F 55 L 16 129/75 97 Room Air 04/14/24 03:26 98.6 F 53 L 16 129/75 95 Room Air 04/13/24 23:03 98.4 F 61 16 142/89 H 96 Room Air PG Care Time/CCT Total # of Minutes Spent Total Time Spent with Patient: Total time spent is greater than 50% in coordination of care (as documented) at patient's floor/unit and/or counseling patient: Coding Level of Care Code 04900 Post Operative Follow-Up Diagnoses Acute cholecystitis K81.0
--- NOTE | 2024-04-14 13:01 | Discharge Summary ---
Date of Service April 14, 2024 Admission HPI Per Admitting Provider This 49yM prisoner with no significant PMH who presented to the [facility] ED on 04/13/24 with complaints of abdominal pain, nausea/vomiting. He states his pain started yesterday AM around 5:30. He was able to eat some hard boiled eggs and milk. Unfortunately throughout the day and into the night his pain worsened in severity and he developed nausea/vomiting. He vomited multiple times into this AM. Due to his symptoms he presented to our ER for further evaluation. A CT a/p was obtained that revealed findings concerning for acute cholecystitis. No evidence of gallbladder rupture. Patient never had symptoms like this before. No issues with eating fatty/greasy/fatty foods. He notes subjective fevers/chills and some SOB/CP 2/2 abdominal pain. No diarrhea/constipation. No food since yesterday. No prior abdominal surgical history. Principal Diagnosis acute cholecystitis Discharge Exam awake/alert, no distress Constitutional well developed and well nourished; no acute distress Respiratory normal respiratory effort Gastrointestinal (Abdomen) Inspection/Auscultation: + abdominal surgical incision (c/d/i with skin glue); abdomen not distended Percussion/Palpation: + abdomen tender (expected tonya-incisional discomfort to palpation ) and abdomen soft Discharge Data Allergies Allergy/AdvReac Type Severity Reaction Status Date / Time No Known Allergies Allergy Unverified 04/13/24 14:44 Consultations 04/13/24 13:46 ED Decision to Admit Stat Procedures Performed Operation Date: 04/13/24 10:45 Actual Procedures p Laparoscopic Cholecystectomy(Not Applicable) - Rita Grimaldo DO Ordered Studies 04/13/24 12:13 CT abd pelvis IV con only Stat CT chest diagnostic w con Stat Hospital Course (1) Acute cholecystitis: This is a 49yM who presented to the [facility] ED on 04/13/24 with complaints of abdominal pain associated with nausea/vomiting. Workup revealed a WBC 13, LFTs within normal limits, and CT a/p scan concerning for acute cholecystitis. Patient was tender in the epigastric and RUQ regions. He was kept NPO with IVF a nd started on IV abx. He was ultimately taken to the OR with Dr. Grimaldo for a laparoscopic cholecystectomy on 04/13. The patient tolerated the procedure well, see op note for full details. The patient recovered in the PACU area and was transferred to the med/surg unit in stable condition. Post operatively his diet was advanced as tolerated and pain controlled on prn medications. Incisions c/d/i. On POD#1 WBC down to 12 and labs otherwise okay. He felt clinically better overall. He was deemed stable for discharge back to halfway. He was instructed to follow up in the office within 2 weeks for check up. Total Time Total Time Spent Total Time Spent (In Minutes): 10 Discharge Plan Discharge Items Patient Disposition: Correctional Facility Reason For Visit: S/P LAPAROSCOPIC CHOLECYSTECTOMY Discharge Diagnosis: laparoscopic cholecystectomy Activity: Per Instructions section Lifting: No more than 10 pounds Lifting Comment: for 2 weeks Bathing Comment: may shower; no soaking in tubs/pools x 2 weeks Exercise/Sports: Wait until after follow-up appointment Non-emergency contact: Surgeon Call non-emergency contact if: you have any medication questions, your symptoms worsen, your pain is not controlled, your pain is worsening, you have a fever, your temperature is above 101.5, your wound has increased redness, your wound has increased drainage and your wound pain has increased Follow-up/Referrals: Arlen PERDOMO [Primary Care Provider] - Rita Grimaldo, [Physician] - (Please call to schedule follow up in clinic within 2 weeks) Diet: Regular Addtl Attending Provider Instructions: You have skin glue over your incisions called dermabond. you may shower with this on. It will tend to dissolve and fall off within a couple weeks. Do not pick at the skin glue You may take Tylenol #3 if your facility provides it for pain. Otherwise you may take Tylenol or Ibuprofen. Do not exceed the daily limit of acetaminophen within a 24 hour time period. Pending Studies at Discharge: Yes Studies:: surgical pathology Skilled Items Patient informed of condition?: Yes DNR: No Discharge Level of Care: Other Communicable Disease: No Discharge Prognosis: Stable Lines: US Guided Peripheral IV Urinary Catheter: No Medications and DC Order Prescriptions: Continued No Known Home Medications Admission Data Admit Date/Time: 04/13/24 18:09 Attending Provider: Rita Grimaldo Admit Provider: Rita Grimaldo Primary Care Provider: Arlen PERDOMO Other Providers: Rita Grimaldo Coding Level of Care Code 83981 IN/OBS DISCH 30 MIN/LESS Diagnoses Acute cholecystitis K81.0
== END 2024-04-14 17:40 ==
LOC: ED 11:27 → 3E 11:27